=== PATIENT | male | born 1960 | race Caucasian/White ===

== ENCOUNTER → 2021-03-30 | Outpatient (CLI) | payer BC ==
[~2021-03-30] MED LIST: ASPIR 8181 MG PO
[2021-03-30 10:28] LABS: HEMOGLOBIN 14.1 gm/dl (14.0-17.5); RED BLOOD COUNT 4.68 M/UL (4.20-5.50); WHITE BLOOD COUNT 6.5 K/UL (4.5-11.0)
[2021-03-30 10:47] LABS: BUN/CREATININE RATIO 15 (0-10)
[2021-04-01 13:13] LABS: CHOLESTEROL, TOTAL 168 mg/dL (100-199); HDL SIZE 9.6 nm (>=9.2); HDL-C 66 mg/dL (>39); LARGE HDL-P 8.9 umol/L (>=4.8); LARGE VLDL-P 1.2 nmol/L (<=2.7); LDL SIZE 21.3 nm (>20.5); LDL SIZE 21.3 nm (>=20.8); LDL-C 91 mg/dL (0-99); LDL-P 1011 nmol/L (<1000); LP-IR SCORE <25 (<=45); SMALL LDL-P 392 nmol/L (<=527); TRIGLYCERIDES 53 mg/dL (0-149); VLDL SIZE 45.5 nm (<=46.6)
== END ==
LOC: LAB 09:05
PROVIDERS: Emergency Medicine
DX: Z12.5 Encounter for screening for malignant neoplasm of prostate (principal); F52.21 Male erectile disorder; G44.89 Other headache syndrome; G47.33 Obstructive sleep apnea (adult) (pediatric); G47.39 Other sleep apnea; G56.03 Carpal tunnel syndrome, bilateral upper limbs; H81.13 Benign paroxysmal vertigo, bilateral; J02.8 Acute pharyngitis due to other specified organisms; J39.8 Other specified diseases of upper respiratory tract; L03.116 Cellulitis of left lower limb; M13.841 Other specified arthritis, right hand; M13.842 Other specified arthritis, left hand; R35.0 Frequency of micturition; R35.1 Nocturia; R50.9 Fever, unspecified; R55 Syncope and collapse; R60.0 Localized edema
CPT/HCPCS: 36415; 80053; 80061; 83704; 84153; 85025